=== PATIENT | female | born 1975 | race African-American/Black ===

== ENCOUNTER 2019-02-26 22:58 | Emergency (ER) | payer OTHER ==
[~2019-02-26] VITALS: Ht 157.5 cm; Wt 56.7 kg
[~2019-02-26 22:58] MED LIST: DEPO-PROVERA
[2019-02-27] MEDS ORDERED: MAALOX ADVANCE355 ML PO (00:27)
[2019-02-27 00:34] VITALS: BP 120/65
== END 2019-02-27 00:35 | disposition home or self-care (01) ==
LOC: ER 22:58
DX: R13.10 Dysphagia, unspecified (principal); Z90.49 Acquired absence of other specified parts of digestive tract